=== PATIENT | female | born 1945 | race Caucasian/White ===

== ENCOUNTER 2024-03-05 01:07 | Emergency (ER) | payer MEDICARE, SELFPAY ==
[2024-03-05] VITALS (8 sets, daily range): BP systolic 110–181; BP diastolic 63–102; BMI 24.6
[2024-03-05 03:03] LABS: % Basophils 0.8 % (0-2); % Eosinophils 3.1 % (0-6); % Immature Granulocytes 0.2 % (0-0.5); % Lymphocytes 29.7 % (20.5-51.1); % Monocytes 8.9 % (1.7-9.3); % Neutrophils 57.3 % (42.2-75.2); Absolute Basophils 0.1 10^3/uL (0-0.2); Absolute Eosinophils 0.2 10^3/uL (0-0.7); Absolute Lymphocytes 1.8 10^3/uL (1.2-3.4); Absolute Monocytes 0.5 10^3/uL (0.1-0.6); Absolute Neutrophils 3.5 10^3/uL (1.4-6.5); Hemoglobin 14.2 g/dL (12.0-16.0); Mean Corp Hgb Conc. 33.8 g/dL (33.0-37.0); Mean Corpuscular Hgb 30.3 pg (27.0-31.0); Mean Corpuscular Volume 89.7 fL (81.0-99.0); Mean Platelet Volume 11.4 fL (7.4-10.4); Nucleated Red Blood Cells % 0 %; Platelet Count 221 10^3/uL (130-400); Red Blood Cell Count 4.68 10^6/uL (4.20-5.40); Red Cell Dist. Width 13.2 % (11.5-14.5); White Blood Cell Count 6.1 10^3/uL (4.8-10.8)
[2024-03-05 03:16] LABS: ALT (SGPT) 21 U/L (0-35); AST (SGOT) 31 U/L (14-36); Albumin 4.7 g/dl (3.5-5.0); Alkaline Phosphatase 151 U/L (38-126); Blood Urea Nitrogen 17 mg/dl (7-17); Calcium 10.3 mg/dl (8.4-10.2); Carbon Dioxide 30 mmol/L (22-30); Chloride 102 mmol/L (98-107); Estimated Creatinine Clearance 41 ml/min; Glucose 100 mg/dl (70-99); Potassium 3.7 mmol/L (3.5-5.1); Sodium 140 mmol/L (135-145); Total Bilirubin 0.5 mg/dl (0.2-1.3); Total Protein 7.5 g/dl (6.3-8.2); eGFR > 60.00
--- NOTE | 2024-03-05 03:20 | ED.GENMED ---
History of Present Illness
General
Chief Complaint: Blood Pressure Problem
Source: patient
Exam Limitations: none
Time Seen by Provider: 03/05/24 03:11
Nursing documentation reviewed up to this point in time: agreed with
History of Present Illness
History of Present Illness:
78-year-old female that presents with high blood pressure. She states that she took her blood pressure for the first time in a while this evening. She was concerned because the blood pressure was elevated. She had no symptoms. She was anxious
because of the elevation in blood pressure so she came into the hospital. She lives in an apartment in [place] and did not want to sleep until being checked out. In the hospital she has no complaints.
Review of Systems
Review of Systems
Allergies reviewed?: Yes
All Other Systems: ROS reviewed and negative except as documented in HPI and ROS
Constitutional: Reports no symptoms
EENT: Reports no symptoms
Respiratory: Reports no symptoms
Cardiac: Reports no symptoms
ABD/GI: Reports no symptoms
: Reports no symptoms
Musculoskeletal: Reports no symptoms
Skin: Reports no symptoms
Neurological: Reports no symptoms
Endocrine: Reports no symptoms
Hematologic/Lymphatic: Reports no symptoms
Psychiatric: Reports anxiety
Phy Exam
General Physical Exam
General Presentation: well appearing and no apparent distress
General Skin: warm and dry
General Habitus: normal
General Mental: alert
General Hydration: appears well hydrated
ENT Exam
ENT Exam: EOMI, pharynx normal, neck supple and normocephalic
Eye Exam
Eye Exam: PERRL, cornea clear and conjunctiva normal
Cardiovascular Exam
Cardiovascular Exam: regular rate/rhythm, no edema, no murmur and normal peripheral pulses
Pulmonary Exam
Pulmonary Exam: lungs clear, no respiratory distress, no rales, no crackles, no rhonchi, no stridor, no wheezing and no cough
Gastrointestinal Exam
Gastrointestinal Exam: normal bowel sounds, non tender, soft, no organomegaly, no pulsatile mass and non distended
Neurological Exam
Neurological Exam: alert, oriented x3, no motor deficits and speech normal
Musculoskeletal Exam
Musculoskeletal Exam: full ROM and no edema
Skin Exam
Skin Exam: normal color, warm/dry, no rash and no petechia
Psychiatric Exam
Psychiatric Exam: anxious
Course
Orders/Labs/Results
Orders:
Orders
03/05/24 01:28
Electrocardiogram (*1) Urgent
Reason for Study: Hypertension, Benign
EKG- Treatment ONCE
03/05/24 02:50
CMP [Comprehensive Metabolic Panel] Urgent
Complete Blood Count/With Diff Urgent
Abnormal Lab Results
03/05/24
02:50
MPV 11.4 H fL
(7.4-10.4)
Glucose 100 H mg/dl
(70-99)
Calcium 10.3 H mg/dl
(8.4-10.2)
Alkaline Phosphatase 151 H U/L
(38-126)
03/05/24 02:50
03/05/24 02:50
Vital Signs
Initial and Last Documented VS:
Initial Vital Signs
Temp Pulse Resp BP Pulse Ox
98.1 F 74 22 174/102 98
03/05/24 01:17 03/05/24 01:17 03/05/24 01:17 03/05/24 01:17 03/05/24 01:17
Last Documented Vital Signs
Temp Pulse Resp BP Pulse Ox
98.1 F 67 18 124/75 99
03/05/24 01:17 03/05/24 06:00 03/05/24 06:00 03/05/24 06:00 03/05/24 06:00
*Critical Care Note
Total Time (30-74mins, 75-104mins- exclusive of procedures): Not Applicable
ED Attending Note
-
Portions of this chart may have been created with voice recognition software.� Occasional wrong word or��sound alike� substitutions may have occurred due to the inherent limitations of voice recognition software.
Discharge Plan
Departure
Patient Disposition: Home (Routine Discharge)
Date of Disposition: 03/05/24
Time of Disposition: 06:55
Patient with high blood pressure during this ER visit?: Yes
Condition: Good
Discharge Problem:
Hypertension
Instructions: High Blood Pressure (DC), BLOOD PRESSURE
Prescriptions:
No Action
trazodone
Referrals:
[facility] [Outside]
PRIVATE,PHYSICIAN [Family Provider] -
Activity Restrictions/Additional Instructions:
It was a pleasure meeting you and taking part in your care. We hope for your continued healing and wellness.
Please read discharge instructions in their entirety. However, they are for general education and may not describe your exact diagnosis at discharge. Information on your ER visit and medical conditions were discussed with you along with appropriate
follow up information...
If indicated, please take your medications as instructed and indicated on discharge paperwork.
Please schedule a follow up appointment as directed. Call to schedule an appointment
Please return to the emergency department with ANY change in, persisting, or worsening of symptoms. If any of your symptoms do not improve, or persist, or become more severe within 6-12 hours, please return to the emergency department for further
care.
Please return to the emergency department if you develop a headache, neck pain/stiffness, fever greater than 100.4F, chest pain, shortness of breath, persistent nausea, vomiting, slurred speech, difficulty walking, numbness/tingling, weakness, signs
of infection or any other symptoms that are worrisome to you.
If you have any questions or concerns please do not hesitate to call the Hospital at or E-mail me directly at [email or web address]
Interventions
Interventions:
*Risk Screen - Suicide Last Done: 03/05/24 01:17
*General Assessment Last Done: 03/05/24 02:45
*Neglect/Abuse Screening Last Done: 03/05/24 01:17
ED- Fall Risk Assessment Last Done: 03/05/24 02:54
*ED COVID-19 Vaccine History Last Done: 03/05/24 02:45
ED- Cardiac Assessment Last Done: 03/05/24 02:54
ED- Neurological Assessment Last Done: 03/05/24 02:54
ED- Pulmonary Assessment Last Done: 03/05/24 02:54
Discharge Date and Time
Print Language: OCCITAN
== END 2024-03-05 07:22 | disposition home or self-care (01) ==
LOC: EMR 01:07
PROVIDERS: EMERGENCY PHYSICIAN Student in an Organized Health Care Education/Training Program
DX: I10 Essential (primary) hypertension (principal); F41.9 Anxiety disorder, unspecified; E03.9 Hypothyroidism, unspecified; Z86.16 Personal history of COVID-19
CPT/HCPCS: 99283; 80053; 85025; 93005